=== PATIENT | female | born 1995 | race Caucasian/White ===

== ENCOUNTER 2018-03-11 07:15 | Emergency (ER) | payer OTHER ==
[2018-03-11] MEDS: Albuterol/Ipratropium 3.0-0.5 MG/3 ML Neb Soln ONE (07:31)
[2018-03-11] MEDS: Albuterol/Ipratropium 3.0-0.5 MG/3 ML Neb Soln NEB ONE (07:31)
--- NOTE | 2018-03-11 07:41 | EDM.PDOC ---
ED HPI GENERAL MEDICAL PROBLEM - General Chief Complaint: Respiratory Problem Stated Complaint: [id number] RESP DISTRESS Time Seen by Provider: 03/11/18 07:25 Source of Information: Reports: Family History Limitations: Reports: No Limitations - History of Present Illness INITIAL COMMENTS - FREE TEXT/NARRATIVE: This 22 yo female patient was brought to the ED due to increased shortness of breath, productive cough with increased symptoms when lying down. The patient started having symptoms on 03/06/18 and the symptoms have gotten progressively worse. The patient's mother reports the patient has had many similar episodes in the past with different diagnosis of bronchitis and pneumonia. The patient has been getting nebulizer treatments 3 times per day for some temporary symptom relief. The patient is in [place] for a graduation. The patient is from [place]. 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: Reports: Breathing Treatments - Related Data Allergies Allergy/AdvReac Type Severity Reaction Status Date / Time egg Allergy Hives Verified 03/11/18 07:56 erythromycin base Allergy Other Verified 03/11/18 07:56 [From Pediazole] nut - unspecified Allergy Anaphylactic Verified 03/11/18 07:56 Shock sulfamethoxazole Allergy Other Verified 03/11/18 07:56 [From Bactrim] sulfisoxazole Allergy Other Verified 03/11/18 07:56 [From Pediazole] trimethoprim [From Bactrim] Allergy Other Verified 03/11/18 07:56 ED ROS GENERAL - Review of Systems Review Of Systems: ROS reveals no pertinent complaints other than HPI. ED EXAM, GENERAL - Physical Exam Exam: See Below Exam Limited By: No Limitations General Appearance: Alert, WD/WN, Moderate Distress, Thin Eye Exam: Bilateral Eye: EOMI, Normal Inspection, PERRL Ears: Normal External Exam, Normal Canal, Hearing Grossly Normal, Normal TMs Nose: Normal Inspection, Normal Mucosa, No Blood Throat/Mouth: Normal Inspection, Normal Lips, Normal Teeth, Normal Gums, Normal Oropharynx, Normal Voice, No Airway Compromise Head: Atraumatic, Normocephalic Neck: Normal Inspection, Supple, Non-Tender, Full Range of Motion Respiratory/Chest: Decreased Breath Sounds, Rhonchi, Wheezing Cardiovascular: Normal Peripheral Pulses, Regular Rate, Rhythm, No Edema, No Gallop, No JVD, No Murmur, No Rub GI/Abdominal: Normal Bowel Sounds, Soft, Non-Tender, No Organomegaly, No Distention, No Abnormal Bruit, No Mass (Female) Exam: Deferred Rectal (Female) Exam: Deferred Back Exam: Normal Inspection, Full Range of Motion, NT Extremities: Normal Inspection, Normal Range of Motion, Non-Tender, Normal Capillary Refill, No Pedal Edema Neurological: Alert, Oriented, CN II-XII Intact, Normal Cognition, Normal Gait, Normal Reflexes, No Motor/Sensory Deficits Psychiatric: Normal Affect, Normal Mood Skin Exam: Warm, Dry, Intact, Normal Color, No Rash Lymphatic: No Adenopathy Course - Vital Signs Last Recorded V/S: Last Vital Signs Temp 37.2 C 03/11/18 07:15 Pulse 100 03/11/18 07:25 Resp 28 H 03/11/18 07:15 BP 108/77 03/11/18 07:15 Pulse Ox 98 03/11/18 07:15 - Orders/Labs/Meds Orders: Active Orders 24 hr Category Date Time Status RT Aerosol Therapy [RC] ASDIRECTED Care 03/11/18 07:25 Ordered Chest 2V [CR] Urgent Exams 03/11/18 07:27 Ordered CULTURE BLOOD [BC] Stat Lab 03/11/18 07:32 Ordered CULTURE BLOOD [BC] Stat Lab 03/11/18 07:32 Ordered Blood Culture x2 Reflex Set [OM.PC] Stat Oth 03/11/18 07:27 Ordered Labs: Laboratory Tests 03/11/18 03/11/18 03/11/18 Range/Units 07:53 07:53 07:53 WBC 4.0 L (5.0-10.0) 10^3/uL RBC 4.41 (4.2-5.4) 10^6/uL Hgb 13.6 (12.0-16.0) g/dL Hct 41.0 (37.0-47.0) % MCV 93.0 (80-100) fL MCH 30.8 (27.0-34.0) pg MCHC 33.2 (33.0-35.0) g/dL Plt Count 145 L (150-450) 10^3/uL Neut % (Auto) 61.0 (42.2-75.2) % Lymph % (Auto) 16.9 L (20.5-50.1) % [place] % (Auto) 21.6 H (2-8) % Eos % (Auto) 0.5 L (1.0-3.0) % Baso % (Auto) 0.0 (0.0-1.0) % Add Manual Diff Yes Neutrophils % (Manual) 66 (42-75) % Band Neutrophils % 5 % Lymphocytes % (Manual) 15 L (20-50) % Monocytes % (Manual) 14 H (2-8) % Sodium 135 (135-145) mmol/L Potassium 4.0 (3.6-5.0) mmol/L Chloride 102 (101-111) mmol/L Carbon Dioxide 25.0 (21.0-31.0) mmol/L Anion Gap 12.0 BUN 11 (7-18) mg/dL Creatinine 0.5 L (0.6-1.3) mg/dL Est Cr Clr Drug Dosing 116.27 mL/min Estimated GFR (MDRD) > 60 BUN/Creatinine Ratio 22.00 Glucose 91 (74-105) mg/dL Lactic Acid 2.1 (0.5-2.2) mmol/L Calcium 8.7 (8.4-10.2) mg/dl Total Bilirubin 0.6 (0.2-1.0) mg/dL AST 35 (10-42) IU/L ALT 20 (10-60) IU/L Alkaline Phosphatase 79 (42-121) IU/L Total Protein 7.1 (6.7-8.2) g/dl Albumin 3.9 (3.2-5.5) g/dl Globulin 3.2 Albumin/Globulin Ratio 1.22 Meds: Medications Discontinued Medications Generic Name Dose Route Start Last Admin Trade Name Freq PRN Reason Stop Dose Admin Albuterol/Ipratropium 3 ml 03/11/18 07:25 03/11/18 07:31 Duoneb 3.0-0.5 Mg/3 Ml NEB 03/11/18 07:26 3 ml ONETIME ONE Administration Albuterol/Ipratropium Confirm 03/11/18 07:26 03/11/18 07:31 Duoneb 3.0-0.5 Mg/3 Ml Administered 03/11/18 07:27 Not Given Dose 3 ml .ROUTE .STK-MED ONE Ceftriaxone Sodium 1 gm/ 0 gm 03/11/18 08:51 Lidocaine HCl 2.1 ml IM 03/11/18 08:52 ONETIME ONE Departure - Departure Time of Disposition: 09:01 Disposition: Home, Self-Care 01 Condition: Fair Clinical Impression: Bronchitis - Discharge Information Instructions: Acute Bronchitis, Adult, [id number] Forms: ED Department Discharge Care Plan Goals: The patient's family was advised of the examination, lab and x-ray results during the visit. The patient was given an injection of Rocephin while in the ED. The patient was discharged with a script for Azithromycin (200/5) to be given 12 mL on day 1 and 6 mL on days 2-5 and Prednisone (5/5) to be given 8 mL daily for 5 days. If the patient has any additional symptoms or concerns, the patient should either follow-up with her primary care facility or return to the emergency department. - My Orders Last 24 Hours: My Active Orders 03/11/18 07:25 RT Aerosol Therapy [RC] ASDIRECTED 03/11/18 07:27 Chest 2V [CR] Urgent Blood Culture x2 Reflex Set [OM.PC] Stat 03/11/18 07:32 CULTURE BLOOD [BC] Stat CULTURE BLOOD [BC] Stat - Assessment/Plan Last 24 Hours: My Active Orders 03/11/18 07:25 RT Aerosol Therapy [RC] ASDIRECTED 03/11/18 07:27 Chest 2V [CR] Urgent Blood Culture x2 Reflex Set [OM.PC] Stat 03/11/18 07:32 CULTURE BLOOD [BC] Stat CULTURE BLOOD [BC] Stat
[2018-03-11 08:25] LABS: CHLORIDE,CL 102 mmol/L (101-111); SODIUM,NA 135 mmol/L (135-145)
[2018-03-11] MEDS: cefTRIAXone 1 GM, Lidocaine 1% 2.1 ML IM ONE ×2 (09:29)
== END 2018-03-11 09:42 | disposition home or self-care (01) ==
LOC: DL.ED 07:15
DX: J40 Bronchitis, not specified as acute or chronic (principal); Z91.012 Allergy to eggs; Z88.1 Allergy status to other antibiotic agents; Z88.2 Allergy status to sulfonamides; Z91.018 Allergy to other foods
CPT/HCPCS: 36415; 71046; 80053; 83605; 85025; 87040; 94640; 96372; 99285; J0696